=== PATIENT | female | born 1940 | race Hispanic/Latino ===

== ENCOUNTER 2016-06-07 12:46 | Outpatient (CLI) | payer MEDICARE ==
--- NOTE | 2016-06-07 13:30 | XRay Report ---
CHEST XRAY, 2 VIEWS: History: Shortness of breath. Findings: There is mild diffuse interstitial coarsening. The lungs are otherwise clear but hyperexpanded. The pleural spaces are clear. The cardiac silhouette and pulmonary vasculature are within normal limits for technique. IMPRESSION: Changes consistent with mild COPD. No evidence for an acute process.
== END 2016-06-07 12:47 | disposition home or self-care (01) ==
LOC: XRAY 12:46
PROVIDERS: ATTEND Internal Medicine
DX: J44.1 Chronic obstructive pulmonary disease with (acute) exacerbation (principal)
CPT/HCPCS: 71020

== ENCOUNTER 2018-12-21 09:25 | Outpatient (CLI) | payer MEDICARE ==
[2018-12-21 11:19] LABS: Hematocrit 40.2 % (30.3-42.9); Hemoglobin 13.8 gm/dl (10.1-14.3); Mean Corpuscular HGB Conc 34 % (30-34); Mean Corpuscular Volume 86 fl (79-97); Platelet Count 238 K/mm3 (140-440); Red Blood Count 4.69 M/mm3 (3.65-5.03); Red Cell Distribution Width 13.4 % (13.2-15.2)
[2018-12-21 11:37] LABS: Alanine Aminotransferase 19 units/L (7-56); Albumin 4.4 g/dL (3.9-5); BUN/Creatinine Ratio 26; Blood Urea Nitrogen 18 mg/dL (7-17); Calcium 10.1 mg/dL (8.4-10.2); Chol/HDL Ratio 2.03 %; HDL Cholesterol 63 mg/dL (40-59); Hemolysis Index 5; LDL Cholesterol,Direct 64 mg/dL (50-130)
[2018-12-25 14:00] LABS: Vitamin D, 25-OH, D2 <4 ng/mL
== END 2018-12-21 09:26 | disposition home or self-care (01) ==
LOC: LAB 09:25
PROVIDERS: ATTEND Internal Medicine
DX: Z13.21 Encounter for screening for nutritional disorder (principal); E11.9 Type 2 diabetes mellitus without complications; E78.5 Hyperlipidemia, unspecified
CPT/HCPCS: 36415; 80053; 80061; 82306; 82607; 83036; 84443; 85027

== ENCOUNTER 2019-01-08 11:23 | Outpatient (CLI) | payer MEDICARE ==
--- NOTE | 2019-01-08 12:49 | XRay Report ---
THORACIC SPINE HISTORY: Back pain. COMPARISON: None. TECHNIQUE: 3 view(s) of the thoracic spine obtained. FINDINGS: Vertebrae: Normal alignment. No fracture or significant abnormality. Disc Spaces:Mild multilevel degenerative disc disease with small osteophytes. Paraspinous Soft Tissues:No significant abnormality. Additional findings: Kyphosis and mild lower thoracic levoscoliosis. IMPRESSION: 1. Mild scoliosis and mild multilevel degenerative disc disease. Signer Name: Shyam Thorne MD Signed: 01/08/2019 12:45 PM Workstation Name: [id number]
--- NOTE | 2019-01-08 12:55 | XRay Report ---
LUMBAR SPINE HISTORY: Pain. COMPARISON: None. TECHNIQUE: 5 view(s) of the lumbar spine obtained. FINDINGS: Vertebrae: Grade I L1-2 retrolisthesis and grade I L3-4 spondylolisthesis with no pars defects identi fied. Mild dextroscoliosis centered at L2-3. Disc Spaces:Moderate Degenerative Disc Disease at T12-L1, L1-2 and to a lesser degree at other levels . Facet Joints:Multilevel facet joint sclerosis. Additional findings: Intact pedicles. IMPRESSION: 1. Scoliosis and multilevel degenerative disc disease. 2. Grade I L1-2 retrolisthesis and grade I L3-4 spondylolisthesis with no pars defects identified. Signer Name: Shyam Thorne MD Signed: 01/08/2019 12:51 PM Workstation Name: [id number]
== END 2019-01-08 11:24 | disposition home or self-care (01) ==
LOC: XRAY 11:23
PROVIDERS: ATTEND Internal Medicine
DX: M43.16 Spondylolisthesis, lumbar region (principal); M53.86 Other specified dorsopathies, lumbar region; M51.35 Other intervertebral disc degeneration, thoracolumbar region
CPT/HCPCS: 72072; 72110

== ENCOUNTER 2019-07-10 09:44 | Outpatient (CLI) | payer MEDICARE | END 2019-07-10 09:45 | disposition home or self-care (01) | LOC: LAB 09:44 | PROVIDERS: ATTEND Internal Medicine | DX: Z13.29 Encounter for screening for other suspected endocrine disorder (principal); E11.9 Type 2 diabetes mellitus without complications | CPT/HCPCS: 36415; 83036; 84443 ==